=== PATIENT | male | born 1990 | race Caucasian/White ===

== ENCOUNTER 2020-08-18 18:56 | Emergency (ER) | payer BC ==
[2020-08-18 18:59] VITALS: BP 138/98; PULSE 77; RESP 18; TEMP 98.1
[2020-08-18] MEDS ORDERED: LIDOCAINE 1% INJ 10MG/ML (20 ML MDV) SQ ONE (19:08)
--- NOTE | 2020-08-18 19:27 | ED ---
Wound/Laceration HPI - General Source: patient Mode of arrival: ambulatory Limitations: no limitations <Devon Ashton - Last Filed: 08/18/20 19:25> <Ximena Suarez - Last Filed: 08/19/20 13:20> - General Chief Complaint: Wound/Laceration Stated Complaint: Finger lac - History of Present Illness Initial Comments: 30-year-old male presents emergency permit chief complaint laceration. Patient reports this occurred about one hour prior to arrival while he was using a razor blade knife to cut some plastic. Patient states she has full range of motion in his finger. States laceration is located at the base of his left second digit. He denies any numbness or tingling. Denies sick medications alleviate his symptoms. Tetanus up-to-date. Pain is sharp in nature (Devon Ashton) - Related Data Previous Rx's Medication Instructions Recorded Polymyxin B-Trimeth Sulf Ophth 2 drops LEFT EYE Q4H #1 bottle 02/27/16 [Polytrim Opthalmic] Sulfamethox-Tmp 800-160Mg [Bactrim 1 tab PO Q12HR #14 tab 02/27/16 DS 800-160 mg] Allergies Allergy/AdvReac Type Severity Reaction Status Date / Time codeine Allergy Swelling Verified 08/18/20 18:59 Review of Systems ROS Other: All systems not noted in ROS Statement are negative. <Devon Ashton - Last Filed: 08/18/20 19:25> ROS Other: All systems not noted in ROS Statement are negative. <Ximena Suarez - Last Filed: 08/19/20 13:20> ROS Statement: Those systems with pertinent positive or pertinent negative responses have been documented in the HPI. Past Medical History Past Medical History: No Reported History History of Any Multi-Drug Resistant Organisms: None Reported Additional Past Surgical History / Comment(s): leg surgery Past Psychological History: No Psychological Hx Reported Smoking Status: Current every day smoker Past Alcohol Use History: None Reported Past Drug Use History: Marijuana <Devon Ashton - Last Filed: 08/18/20 19:25> General Exam Limitations: no limitations General appearance: alert, in no apparent distress Head exam: Present: atraumatic, normocephalic, normal inspection Eye exam: Present: normal appearance, PERRL, EOMI Pupils: Present: normal accommodation ENT exam: Present: normal exam, normal oropharynx, mucous membranes moist, TM's normal bilaterally, normal external ear exam Neck exam: Present: normal inspection, full ROM. Absent: tenderness Respiratory exam: Present: normal lung sounds bilaterally. Absent: respiratory distress Cardiovascular Exam: Present: regular rate, normal rhythm, normal heart sounds Extremities exam: Present: full ROM, tenderness (Tenderness at the laceration site), normal capillary refill, other (Palpable DP and PT bilaterally). Absent: normal inspection (2cm superficial laceration at the base of the left second digit), pedal edema, joint swelling, calf tenderness Back exam: Present: normal inspection, full ROM. Absent: tenderness Neurological exam: Present: alert, oriented X3 Psychiatric exam: Present: normal affect, normal mood Skin exam: Present: warm, dry, intact, normal color <Devon Ashton - Last Filed: 08/18/20 19:25> Course Vital Signs 08/18/20 18:57 Temperature 98.1 F Pulse Rate 77 Respiratory 18 Rate Blood Pressure 138/98 O2 Sat by Pulse 99 Oximetry Procedures - Laceration Laceration #1 Consent Obtained: verbal consent Indication: laceration Site: hand Size (cm): 2 Description: linear, clean Depth: simple, single layer Sedation/Analgesia: none Anesthetic Used: lidocaine 1% Anesthesia Technique: local infiltration Amount (mls): 2 Pre-repair: irrigated extensively, deep structures intact Type of Sutures: nylon Size of Sutures: 4-0 Number of Sutures: 3 Technique: simple, interrupted Patient Tolerated Procedure: well, no complications <Devon Ashton - Last Filed: 08/18/20 19:25> Medical Decision Making <Devon Ashton - Last Filed: 08/18/20 19:25> <Ximena Suarez - Last Filed: 08/19/20 13:20> - Medical Decision Making 30-year-old male presents emergency department with a chief complaint of laceration. Laceration site is superficial patient has poor range of motion. Neurovascularly intact. Laceration site repaired with 3 sutures after thorough cleaning and irrigation. Patient advised to return for suture removal. Tetanus up-to-date. Case discussed with (Devon Ashton) I was available for consultation in the emergency department. The history and physical exam were done by the midlevel provider. I was consulted for this patients care. I reviewed the case with the midlevel provider and based on their presentation of the patient, I agree with the assessment, medical decision making and plan of care as documented. Chart should be documented to say that case was discussed with Dr. Suarez. Chart was dictated using [employer] dictation software. Attempts were made to correct any dictation errors however some typographical errors may persist. Patient was seen during a national state of emergency due to the Covid-19 pandemic. (Ximena Suarez) Disposition Is patient prescribed a controlled substance at d/c from ED?: No Time of Disposition: 19:27 <Devon Ashton - Last Filed: 08/18/20 19:25> <Ximena Suarez - Last Filed: 08/19/20 13:20> Clinical Impression: Laceration Disposition: HOME SELF-CARE Condition: Stable Instructions (If sedation given, give patient instructions): Care For Your Stitches (DC), Laceration (DC) Additional Instructions: Please return to the emergency room in 8-10 days to have sutures removed. Please watch for any signs of infection which may include increased pain, swelling, redness, fever or chills. Please return to emergency room for any signs of infection do occur. Please use clean soap and water over the area to prevent scabbing over your stitches. Please leave wound covered for the first 24-48 hours and then leave wound open to air. Please return to the emergency room for any other concerns. Referrals: None,Stated [Primary Care Provider] - 1-2 days
== END 2020-08-18 19:36 | disposition home or self-care (01) ==
LOC: EC 18:56
DX: S61.211A Laceration without foreign body of left index finger without damage to nail, initial encounter (principal); F17.200 Nicotine dependence, unspecified, uncomplicated; F12.90 Cannabis use, unspecified, uncomplicated; W26.8XXA Contact with other sharp object(s), not elsewhere classified, initial encounter
CPT/HCPCS: 99283; 12001; J2001

== ENCOUNTER 2020-10-05 13:51 | Emergency (ER) | payer BC ==
[2020-10-05 14:08] VITALS: BP 130/87; PULSE 76; RESP 18; TEMP 97.7
--- NOTE | 2020-10-05 15:16 | ED ---
General Adult HPI - General Chief complaint: Dizziness Stated complaint: Dizziness, SOB, headache, tooth infection Time Seen by Provider: 10/05/20 14:21 Source: patient, RN notes reviewed Mode of arrival: ambulatory Limitations: no limitations - History of Present Illness Initial comments: This a 30-year-old male presents emergency Department with multiple complaints. Patient apparently completed that today. Patient CT is bilateral upper wisdom teeth and dental fractures. Patient noticed some drainage increasing pain. Patient states he has not seen a dentist in several months. No fevers or chills. Patient states the pain makes him feel lightheaded dizzy. Patient also states he has occasional palpitations but states he drinks 3 months or as daily. He states he noticed he gets frequent headaches because of this. Patient has not follow-up with PCP. Patient denies any chest pain shortness of breath abdominal pain. - Related Data Previous Rx's Medication Instructions Recorded Polymyxin B-Trimeth Sulf Ophth 2 drops LEFT EYE Q4H #1 bottle 02/27/16 [Polytrim Opthalmic] Sulfamethox-Tmp 800-160Mg [Bactrim 1 tab PO Q12HR #14 tab 02/27/16 DS 800-160 mg] Penicillin V Potassium [Pen Vee K] 500 mg PO QID #40 tablet 10/05/20 Allergies Allergy/AdvReac Type Severity Reaction Status Date / Time codeine Allergy Swelling Verified 08/18/20 18:59 Review of Systems ROS Statement: Those systems with pertinent positive or pertinent negative responses have been documented in the HPI. ROS Other: All systems not noted in ROS Statement are negative. Past Medical History Past Medical History: No Reported History History of Any Multi-Drug Resistant Organisms: None Reported Additional Past Surgical History / Comment(s): leg surgery Past Psychological History: No Psychological Hx Reported Smoking Status: Current every day smoker Past Alcohol Use History: Rare Past Drug Use History: Marijuana General Exam Limitations: no limitations General appearance: alert, in no apparent distress Head exam: Present: atraumatic, normocephalic, normal inspection Eye exam: Present: normal appearance, PERRL, EOMI. Absent: scleral icterus, conjunctival injection, periorbital swelling ENT exam: Present: mucous membranes moist. Absent: normal oropharynx (1 and 16 dental fractures) Neck exam: Present: normal inspection, full ROM. Absent: tenderness, lymphadenopathy Respiratory exam: Present: normal lung sounds bilaterally. Absent: respiratory distress, wheezes, rales, rhonchi, stridor Cardiovascular Exam: Present: regular rate, normal rhythm, normal heart sounds. Absent: systolic murmur, diastolic murmur, rubs, gallop, clicks Course Vital Signs 10/05/20 14:05 Temperature 97.7 F Pulse Rate 76 Respiratory 18 Rate Blood Pressure 130/87 O2 Sat by Pulse 100 Oximetry EKG Findings - EKG Comments: EKG Findings:: Normal sinus rhythm Rate of 68 MO 122 QRS 114 QT/QTC 404/429 - EKG Results: EKG: interpreted by ROMAN Medical Decision Making - Medical Decision Making Patient was started on antibiotics for dental infection was global his dentist. Patient advised to discontinue caffeine use will follow-up with PCP. Disposition Clinical Impression: Dental infection, Palpitations Disposition: HOME SELF-CARE Condition: Stable Instructions (If sedation given, give patient instructions): Toothache (ED) Additional Instructions: Please return to the Emergency Department if symptoms worsen or any other conc erns. Prescriptions: Penicillin V Potassium [Pen Vee K] 500 mg PO QID #40 tablet Is patient prescribed a controlled substance at d/c from ED?: No Referrals: None,Stated [Primary Care Provider] - 1-2 days Oli Bravo [STAFF PHYSICIAN] - 1-2 days Time of Disposition: 15:15
== END 2020-10-05 15:20 | disposition home or self-care (01) ==
LOC: EC 13:51
DX: K04.7 Periapical abscess without sinus (principal); F17.200 Nicotine dependence, unspecified, uncomplicated; F12.90 Cannabis use, unspecified, uncomplicated; R00.2 Palpitations
CPT/HCPCS: 93005; 99283

== ENCOUNTER 2021-03-20 11:20 | Emergency (ER) | payer OTHER ==
[2021-03-20 11:46] VITALS: BP 112/67; PULSE 80; RESP 16; TEMP 97.9
[2021-03-20] MEDS ORDERED: PROPARACAINE 0.5% OPHTH DROPS 15 ML BTL LEFT EYE STA (12:10)
[2021-03-20] MEDS ORDERED: FLUOROMETHOLONE 0.1% OPHTH DROPS 5 ML BTL LEFT EYE SCH (12:15)
[2021-03-20] MEDS ORDERED: FLUORESCEIN STRIPS 1 MG STRIP LEFT EYE ONE (12:35)
--- NOTE | 2021-03-20 13:56 | ED ---
ENT HPI - General Chief complaint: ENT Stated complaint: Chemical in Eyes Source: patient Mode of arrival: ambulatory Limitations: no limitations - History of Present Illness Initial comments: Patient is a 30-year-old previously healthy male presents emergency room and after he was exposed to isocyanate. Patient had an occupational exposure approximate one hour ago. He was not wearing safety glasses. States that it splashed into both eyes, more so in the left than the right. He admits to foreign body sensation with mild blurred vision. Exposure happened 1 hour ago. They did flush out both eyes 250 mL of saline. He admits to mild hearing. Denies exposure into his mouth or up his nose. No other alleviating, precipitating or modifying factors - Related Data Previous Rx's Medication Instructions Recorded Polymyxin B-Trimeth Sulf Ophth 2 drops LEFT EYE Q4H #1 bottle 02/27/16 [Polytrim Opthalmic] Sulfamethox-Tmp 800-160Mg [Bactrim 1 tab PO Q12HR #14 tab 02/27/16 DS 800-160 mg] Penicillin V Potassium [Pen Vee K] 500 mg PO QID #40 tablet 10/05/20 Erythromycin Ophth Oint [Romycin 1 applic BOTH EYES QID #3.5 gm 03/20/21 Ophth Oint] Allergies Allergy/AdvReac Type Severity Reaction Status Date / Time codeine Allergy Swelling Verified 03/20/21 11:45 Review of Systems ROS Statement: Those systems with pertinent positive or pertinent negative responses have been documented in the HPI. ROS Other: All systems not noted in ROS Statement are negative. Past Medical History Past Medical History: No Reported History History of Any Multi-Drug Resistant Organisms: None Reported Additional Past Surgical History / Comment(s): leg surgery Past Psychological History: No Psychological Hx Reported Smoking Status: Current every day smoker Past Alcohol Use History: None Reported Past Drug Use History: Marijuana General Exam Limitations: no limitations General appearance: alert, in no apparent distress Head exam: Present: atraumatic, normocephalic, normal inspection Eye exam: Present: PERRL, EOMI, conjunctival injection (left greater than right), other (mild blistering lower lids bilaterally) ENT exam: Present: normal exam, mucous membranes moist Course Vital Signs 03/20/21 11:42 Temperature 97.9 F Pulse Rate 80 Respiratory 16 Rate Blood Pressure 112/67 O2 Sat by Pulse 99 Oximetry Medical Decision Making - Medical Decision Making Upon arrival patient is placed in room 17. Visual acuity is obtained. Vision is 20/40 in the left eye, 20/50 in the right eye and 20/30 in both eyes. Proparacaine is instilled in both eyes. We do apply Anurag lenses into both of the patient's eyes and irrigated with 1 L of normal saline in each. Slit-lamp exam is performed which does not demonstrate any signs of corneal abrasions or ulcerations. At this time the patient will be discharged home and is given follow-up information for the ophthalmology office. He'll be given a prescription for erythromycin ointment which he is to apply 4 times a day. R eturn to the emergency room for any new or worsening symptoms. He was given written and verbal discharge instructions and discharged home in stable condition Disposition Clinical Impression: Chemical exposure of eye Disposition: HOME SELF-CARE Condition: Stable Instructions (If sedation given, give patient instructions): Chemical Eye [place] (ED) Additional Instructions: Use the eye ointment as directed. Follow up with the technical advisor as needed. Prescriptions: Erythromycin Ophth Oint [Romycin Ophth Oint] 1 applic BOTH EYES QID #3.5 gm Is patient prescribed a controlled substance at d/c from ED?: No Referrals: None,Stated [Primary Care Provider] - 1-2 days Belem Portillo MD [STAFF PHYSICIAN] - 1-2 days Time of Disposition: 13:55
== END 2021-03-20 14:22 | disposition home or self-care (01) ==
LOC: EC 11:20
DX: T65.94XA Toxic effect of unspecified substance, undetermined, initial encounter (principal); F17.200 Nicotine dependence, unspecified, uncomplicated; Z88.5 Allergy status to narcotic agent; X12.XXXA Contact with other hot fluids, initial encounter; Y99.0 Civilian activity done for income or pay
CPT/HCPCS: 99283

== ENCOUNTER 2022-03-05 10:02 | Emergency (ER) | payer OTHER ==
[2022-03-05 10:12] VITALS: TEMP 97.8
--- NOTE | 2022-03-05 10:49 | ED ---
Head Injury HPI - General Chief complaint: Head Injury Stated complaint: headache, URI Time Seen by Provider: 03/05/22 10:06 Source: patient Mode of arrival: ambulatory Limitations: no limitations - History of Present Illness Initial comments: 31-year-old male presents emergency Department with chief complaint of head injury. Patient states that he his of the for a few weeks ago with 5 pound sledgehammer. Patient states that he laceration his tetanus up-to-date. Patient states that he been having increasing headaches. Patient states pressure in his forehead. Patient states last week he had a fever or was seen at another ER facility and was diagnosed with viral infection. Patient states he still has increasing cough congestion that he is a daily smoker. Denies any fevers or chills currently. Denies any vomiting, abdominal pain, flank pain no dysuria no hematuria. - Related Data Previous Rx's Medication Instructions Recorded Polymyxin B-Trimeth Sulf Ophth 2 drops LEFT EYE Q4H #1 bottle 02/27/16 [Polytrim Opthalmic] Sulfamethox-Tmp 800-160Mg [Bactrim 1 tab PO Q12HR #14 tab 02/27/16 DS 800-160 mg] Penicillin V Potassium [Pen Vee K] 500 mg PO QID #40 tablet 10/05/20 Erythromycin Ophth Oint [Romycin 1 applic BOTH EYES QID #3.5 gm 03/20/21 Ophth Oint] Azithromycin [Zithromax Z Pack] 0 tab PO DIRECTED #6 tab 03/05/22 Allergies/Adverse reactions: Allergies Allergy/AdvReac Type Severity Reaction Status Date / Time codeine Allergy Swelling Verified 03/05/22 10:12 Review of Systems ROS Statement: Those systems with pertinent positive or pertinent negative responses have been documented in the HPI. ROS Other: All systems not noted in ROS Statement are negative. Past Medical History Past Medical History: No Reported History History of Any Multi-Drug Resistant Organisms: None Reported Additional Past Surgical History / Comment(s): R leg surgery Past Psychological History: No Psychological Hx Reported Smoking Status: Current every day smoker Past Alcohol Use History: Rare Past Drug Use History: Marijuana General Exam Limitations: no limitations General appearance: alert, in no apparent distress Head exam: Present: atraumatic, normocephalic, normal inspection Eye exam: Present: normal appearance, PERRL, EOMI. Absent: scleral icterus, conjunctival injection, periorbital swelling ENT exam: Present: normal exam, normal oropharynx, mucous membranes moist Neck exam: Present: normal inspection, full ROM. Absent: tenderness, meningismus, lymphadenopathy Respiratory exam: Present: rhonchi. Absent: normal lung sounds bilaterally, respiratory distress, wheezes, rales, stridor Cardiovascular Exam: Present: regular rate, normal rhythm, normal heart sounds. Absent: systolic murmur, diastolic murmur, rubs, gallop, clicks GI/Abdominal exam: Present: soft, normal bowel sounds. Absent: distended, tenderness, guarding, rebound, rigid Neurological exam: Present: alert, oriented X3, CN II-XII intact, reflexes normal. Absent: motor sensory deficit Skin exam: Present: warm, dry, intact, normal color. Absent: rash Course Vital Signs 03/05/22 03/05/22 10:04 11:22 Temperature 97.8 F Pulse Rate 84 58 L Respiratory 18 12 Rate Blood Pressure 136/92 118/80 O2 Sat by Pulse 100 98 Oximetry Medical Decision Making - Medical Decision Making CT of brain was obtained given head injury and persistent headache. CT is unremarkable. Patient may have some residual concussion symptoms. Patient discharged in stable condition he does have acute bronchitis. Patient discharged in stable condition with antiemetics. Disposition Clinical Impression: Concussion, Acute bronchitis Disposition: HOME SELF-CARE Condition: Stable Instructions (If sedation given, give patient instructions): Concussion (ED) Additional Instructions: Please return to the Emergency Department if symptoms worsen or any other concerns. Prescriptions: Azithromycin [Zithromax Z Pack] 0 tab PO DIRECTED #6 tab Is patient prescribed a controlled substance at d/c from ED?: No Referrals: None,Stated [Primary Care Provider] - 1-2 days Time of Disposition: 12:04
--- NOTE | 2022-03-05 10:59 | XR ---
EXAMINATION TYPE: XR chest 2V DATE OF EXAM: 03/05/2022 COMPARISON: NONE HISTORY: Cough TECHNIQUE: Frontal and lateral views of the chest are obtained. FINDINGS: Patient is rotated. There is no focal air space opacity, pleural effusion, or pneumothorax seen. The cardiac silhouette size is within normal limits. The osseous structures are intact. IMPRESSION: No acute cardiopulmonary process.
--- NOTE | 2022-03-05 11:16 | CT ---
EXAMINATION TYPE: CT brain wo con DATE OF EXAM: 03/05/2022 COMPARISON: None INDICATION: MUNOZ, head injury DLP: 1129.4 mGycm, Automated exposure control for dose reduction was used. CONTRAST: None CT of the brain is performed utilizing 3 mm thick sections through the posterior fossa and 3 mm thick sections through the remaining calvarium. Study is performed within 24 hours of arrival to the hosp [facility]. No abnormal hyperdensity is present to suggest an acute intracranial hemorrhage. No mass lesion is evident. No acute infarcts are evident. Ventricles and sulci are appropriate for the patient age. Paranasal sinuses and mastoid air cells within the [id number] are clear. IMPRESSIONS: 1. No acute intracranial process. Follow-up MRI can be performed as clinically indicated.
[2022-03-05 11:23] VITALS: BP 118/80; PULSE 58; RESP 12
== END 2022-03-05 12:19 | disposition home or self-care (01) ==
LOC: EC 10:02
DX: S06.0X0A Concussion without loss of consciousness, initial encounter (principal); J20.9 Acute bronchitis, unspecified; F17.200 Nicotine dependence, unspecified, uncomplicated; Z88.5 Allergy status to narcotic agent; X58.XXXA Exposure to other specified factors, initial encounter
CPT/HCPCS: 70450; 71046; 99284

== ENCOUNTER 2023-04-28 22:52 | Emergency (ER) | payer OTHER ==
[2023-04-28 22:59] VITALS: BP 128/85; PULSE 98; RESP 20; TEMP 98.1
[2023-04-28] MEDS ORDERED: PROPARACAINE 0.5% OPHTH DROPS 15 ML BTL BOTH EYES STA (23:05)
[2023-04-28] MEDS ORDERED: FLUORESCEIN STRIPS 1 MG STRIP BOTH EYES ONE (23:05)
--- NOTE | 2023-04-28 23:41 | ED ---
General Adult HPI - General Chief complaint: Eye Problems Stated complaint: Right Eye Irritation Time Seen by Provider: 04/28/23 23:05 Source: patient Mode of arrival: ambulatory Limitations: no limitations - History of Present Illness Initial comments: Dictation was produced using [employer] dictation software. please excuse any grammatical, word or spelling errors. Chief Complaint: 32-year-old male presents with eye foreign body History of Present Illness: 32-year-old male 4 days ago he was using a grinding discussed to stand a car door. He was wearing eye protection. He states that he some metal ricocheted off his eye protection went to his eye. He tried to remove the foreign body with himself with no LOC. States over the last 24-48 hours his symptoms became a lot worse. Now he is complaining of redness to the eye, swelling, light sensitivity and pain. The ROS documented in this emergency department record has been reviewed and confirmed by me. Those systems with pertinent positive or negative responses have been documented in the HPI. All other systems are other negative and/or noncontributory. - Related Data Previous Rx's Medication Instructions Recorded Polymyxin B-Trimeth Sulf Ophth 2 drops LEFT EYE Q4H #1 bottle 02/27/16 [Polytrim Opthalmic] Sulfamethox-Tmp 800-160Mg [Bactrim 1 tab PO Q12HR #14 tab 02/27/16 DS 800-160 mg] Penicillin V Potassium [Pen Vee K] 500 mg PO QID #40 tablet 10/05/20 Erythromycin Ophth Oint [Romycin 1 applic BOTH EYES QID #3.5 gm 03/20/21 Ophth Oint] Azithromycin [Zithromax Z Pack] 0 tab PO DIRECTED #6 tab 03/05/22 Erythromycin Ophth Oint [Romycin 1 applic LEFT EYE Q6H #1 gm 04/28/23 Ophth Oint] Allergies Allergy/AdvReac Type Severity Reaction Status Date / Time codeine Allergy Swelling Verified 03/05/22 10:12 amoxicillin AdvReac Unknown Verified 04/28/23 22:58 Review of Systems ROS Statement: Those systems with pertinent positive or pertinent negative responses have been documented in the HPI. ROS Other: All systems not noted in ROS Statement are negative. Past Medical History Past Medical History: No Reported History History of Any Multi-Drug Resistant Organisms: None Reported Additional Past Surgical History / Comment(s): R leg surgery Past Psychological History: No Psychological Hx Reported Smoking Status: Current every day smoker Past Alcohol Use History: Occasional Past Drug Use History: Marijuana General Exam - General Exam Comments Initial Comments: PHYSICAL EXAM: General Impression: Alert and oriented x3, not in acute distress HEENT: Normocephalic atraumatic, extra-ocular movements intact, pupils equal and reactive to light bilaterally, mucous membranes moist Ocular: Right conjunctivitis, foreign body seen in the visual axis over the pupil at approximately 11 o'clock position Cardiovascular: Heart regular rate and rhythm Chest: Able to complete full sentences, no retractions, no tachypnea Musculoskeletal: Pulses present and equal in all extremities, no peripheral edema Motor: no focal deficits noted Neurological: CN II-XII grossly intact, no focal motor or sensory deficits noted Skin: Intact with no visualized rashes Psych: Normal affect and mood Limitations: no limitations Course Vital Signs 04/28/23 22:55 Temperature 98.1 F Pulse Rate 98 Respiratory 20 Rate Blood Pressure 128/85 O2 Sat by Pulse 100 Oximetry Medical Decision Making - Medical Decision Making Was pt. sent in by a medical professional or institution (Dr. PA, RETREAD MOLD OPERATOR, urgent care, hospital, or prison...) When possible be specific @ -No Did you speak to anyone other than the patient for history (EMS, parent, family, police, friend...)? What history was obtained from this source @ -No Did you review nursing and triage notes (agree or disagree)? Why? @ -I reviewed and agree with nursing and triage notes Were old charts reviewed (outside hosp., previous admission, EMS record, old EKG, old radiological studies, urgent care reports/EKG's, prison records)? Report findings @ -No old charts were reviewed Differential Diagnosis (chest pain, altered mental status, abdominal pain women, abdominal pain men, vaginal bleeding, musculoskeletal, weakness, fever, dyspnea, syncope, headache, dizziness, GI bleed, back pain, seizure, CVA, palpatations, mental health)? @ -not applicable EKG interpreted by me (3pts min.). @ -None done X-rays interpreted by me (1pt min.). @ -None done CT interpreted by me (1pt min.). @ -None done U/S interpreted by me (1pt. min.). @ -None done What testing was considered but not performed or refused? (CT, X-rays, U/S, labs)? Why? @ -None What meds were considered but not given or refused? Why? @ -None Did you discuss the management of the patient with other professionals (professionals i.e. , PA, RETREAD MOLD OPERATOR, lab, RT, psych nurse, social science analyst, tube coater, teacher, adult probation officer, gearcase assembler)? Give summary @ -No Was smoking cessation discussed for >3mins.? @ -No Was critical care preformed (if so, how long)? @ -No Were there social determinants of health that impacted care today? How? (Homelessness, low income, unemployed, alcoholism, drug addiction, transportation, low edu. Level, literacy, decrease access to med. care, nursing home, rehab)? @ -No Was there de-escalation of care discussed even if they declined (Discuss DNR or withdrawal of care, Hospice)? DNR status @ -No What co-morbidities impacted this encounter? (DM, HTN, Smoking, COPD, CAD, Cancer, CVA, ARF, Chemo, Hep., AIDS, mental health diagnosis, sleep apnea, morbid obesity)? @ -None Was patient admitted / discharged? Hospital course, mention meds given and route, prescriptions, significant lab abnormalities, going to OR and other pertinent info. @ -32-year-old male presents emergency department with foreign body to the right cornea. Vital signs stable. Foreign body was removed using Q-tip. Patient was given proparacaine eyedrops which significantly improved his symptoms. Visual acuity shows 20/50 of the right eye, 20/30 of the left eye. Patient given erythromycin ointment to apply every 6 hours and given ophthalmology follow-up. Undiagnosed new problem with uncertain prognosis? @ -No Drug Therapy requiring intensive monitoring for toxicity (Heparin, Nitro, Insulin, Cardizem)? @ -No Were any procedures done? @ -No Diagnosis/symptom? Acute, or Chronic, or Acute on Chronic? Uncomplicated (wit hout systemic symptoms) or Complicated (systemic symptoms)? @ -Corneal foreign body Side effects of treatment? @ -No Exacerbation, Progression, or Severe Exacerbation? @ -No Poses a threat to life or bodily function? How? (Chest pain, [place], [place], pneumonia, PE, COPD, DKA, ARF, appy, cholecystitis, CVA, Diverticulitis, Homicidal, Suicidal, threat to staff... and all critical care pts) @ -yes Disposition Clinical Impression: Corneal foreign body Disposition: HOME SELF-CARE Condition: Good Instructions (If sedation given, give patient instructions): Eye Foreign Body (ED) Prescriptions: Erythromycin Ophth Oint [Romycin Ophth Oint] 1 applic LEFT EYE Q6H #1 gm Is patient prescribed a controlled substance at d/c from ED?: No Referrals: Juan Pérez MD [STAFF PHYSICIAN] - 1-2 days Time of Disposition: 23:41
[2023-04-28] MEDS ORDERED: ERYTHROMYCIN 5 MG/GM OPHTH OINT 3.5 GM TUBE RIGHT EYE SCH (23:45)
== END 2023-04-28 23:58 | disposition home or self-care (01) ==
LOC: EC 22:52
DX: T15.02XA Foreign body in cornea, left eye, initial encounter (principal); F17.200 Nicotine dependence, unspecified, uncomplicated; F12.90 Cannabis use, unspecified, uncomplicated; Z88.5 Allergy status to narcotic agent; Z88.0 Allergy status to penicillin
CPT/HCPCS: 99283